=== PATIENT | female | born 1955 | race Caucasian/White ===

== ENCOUNTER 2024-01-10 17:18 | Emergency (ER) | payer MEDICARE, OTHER, SELFPAY ==
[2024-01-10 17:32] VITALS: BP 145/80; PULSE 75; RESP 18; TEMP 36.6; O2SAT 98; BMI 29.8
--- NOTE | 2024-01-10 17:36 | DI.RAD.S_ITS ---
PROCEDURE: XR FOREARM RT 2V INDICATIONS: fell/pain TECHNIQUE: 2 views of the forearm were acquired. COMPARISON: None. FINDINGS: Bones: Study limited due to patient positioning. There is a suspected minimally displaced right radial head fracture. Soft tissues: No suspicious soft tissue calcifications or masses. IMPRESSION: Suspected minimally displaced right radial head fracture. Dictated by: Mau Hernandez M.D. on 01/10/2024 at 18:33 Approved by: Mau Hernandez M.D. on 01/10/2024 at 18:34
--- NOTE | 2024-01-10 17:36 | DI.RAD.S_ITS ---
PROCEDURE: XR WRIST RT MIN 3V INDICATIONS: fell/pain TECHNIQUE: 4 views of the wrist were acquired. COMPARISON: None. FINDINGS: Bones: No definite fracture visualized. Normal alignment. Background polyarticular degenerative changes of the right wrist. Soft tissues: No suspicious soft tissue calcifications. There is moderate soft tissue swelling overlying the dorsal aspect of the right wrist. IMPRESSION: Moderate dorsal right wrist soft tissue swelling without definite underlying fracture. No evidence for dislocation. If there is persistent clinical concern for occult fracture given adequate mechanism of injury, consider repeat imaging in 10-14 days. Immobilization as clinically indicated. Dictated by: Mau Hernandez M.D. on 01/10/2024 at 18:34 Approved by: Mau Hernandez M.D. on 01/10/2024 at 18:36
--- NOTE | 2024-01-10 19:06 | ED.UPPEXIN ---
HPI - Extremity Injury (Upper) <Eliseo Juares PA-C - Last Filed: 01/10/24 19:11> General Chief Complaint: Extremity Injury, Upper Stated Complaint: Fall, wrist pain, not bld thinners Time Seen by Provider: 01/10/24 17:44 Source: patient Mode of arrival: Ambulatory History of Present Illness HPI narrative: 68-year-old female presents to the ED status post a mechanical fall and right arm injury sustained just prior to arrival. Patient states that she stepped on a wet patch of floor in the grocery store, causing her to slip and fall on her right forearm. Patient denies numbness, tingling, weakness. Patient endorses mild pain and swelling. Patient is not on blood thinners. No head strike or loss of consciousness. Related Data Allergies Allergy/AdvReac Type Severity Reaction Status Date / Time No Known Drug Allergies Allergy Verified 01/10/24 17:32 Review of Systems <Eliseo Juares PA-C - Last Filed: 01/10/24 19:11> Constitutional Constitutional: Denies chills, Denies fatigue, Denies fever(s), Denies frequent falls, Denies lethargy and Denies weakness Eyes Eyes: Denies change in vision, Denies eye discharge, Denies irritation and Denies loss of vision ENT Ears, Nose, Mouth, and Throat: Denies change in voice, Denies dizziness, Denies neck pain, Denies sore throat and Denies throat swelling Cardiovascular Cardiovascular: Denies chest pain, Denies irregular heart rhythm, Denies lightheadedness, Denies palpitations, Denies dyspnea, Denies dyspnea on exertion and Denies orthopnea Respiratory Respiratory: Denies cough, Denies dyspnea, Denies dyspnea on exertion and Denies wheezing Gastrointestinal Gastrointestinal: Denies abdominal pain, Denies change in bowel habits, Denies diarrhea, Denies nausea and Denies vomiting Musculoskeletal Musculoskeletal: Denies neck pain and Denies numbness Comments: Right elbow injury Integumentary/Breasts Skin/Breast: Denies pruritus, Denies erythema, Denies rash and Denies wounds Neurologic Neurologic: Denies behavioral changes, Denies confusion, Denies dizziness, Denies frequent falls, Denies loss of vision, Denies numbness and Denies weakness Psychiatric Psychiatric: Denies anxiety, Denies behavioral changes, Denies confusion, Denies depression, Denies homicidal ideation and Denies suicidal ideation Endocrine Endocrine: Denies fatigue, Denies flushing and Denies palpitations Hematologic/Lymphatic Hematologic/Lymphatic: Denies easy bruising Allergic/Immunologic Allergic/Immunologic: Denies urticaria, Denies throat swelling and Denies wheezing Patient History <Eliseo Juares PA-C - Last Filed: 01/10/24 19:11> Social History Smoking Status: Never smoker Smoking Status: Never smoker alcohol intake frequency: holidays/special occasions only Substance Use Type: does not use Exam <Eliseo Juares PA-C - Last Filed: 01/10/24 19:11> Narrative Exam Narrative: Const General:?cooperative, healthy appearing and comfortable HENMA Head:?normal to inspection Ears:?hearing grossly normal bilaterally Nose:?external nose normal Face and sinus:?normal facial exam and sinuses nontender Mouth:?oral mucosae normal Throat:?posterior oropharynx normal Eyes General:?appearance normal, both eyes and all related structures Neck Neck:?normal visual inspection and no lymphadenopathy noted Resp Effort & Inspection:?normal respiratory effort Auscultation:?clear to auscultation bilaterally Cardio Rate:?regular rate Rhythm:?regular rhythm Musculoskeletal There is some swelling to the right elbow and tenderness to pain. Strength and sensation is intact. Full range of motion. Neurovascularly intact. Neuro General:?patient alert, patient awake and patient oriented x3 Initial Vital Signs Initial Vital Signs: Vital Signs Temperature 97.9 F 01/10/24 17:32 Pulse Rate 75 01/10/24 17:32 Respiratory Rate 18 01/10/24 17:32 Blood Pressure 145/80 H 01/10/24 17:32 Pulse Oximetry 98 01/10/24 17:32 Oxygen Delivery Method Room Air 01/10/24 17:32 <Dell Carrillo MD - Last Filed: 01/16/24 14:11> Initial Vital Signs Initial Vital Signs: Vital Signs Temperature 97.9 F 01/10/24 17:32 Pulse Rate 75 01/10/24 17:32 Respiratory Rate 18 01/10/24 17:32 Blood Pressure 145/80 H 01/10/24 17:32 Pulse Oximetry 98 01/10/24 17:32 Oxygen Delivery Method Room Air 01/10/24 17:32 Course <Eliseo Juares PA-C - Last Filed: 01/10/24 19:11> Orders Ordered: Discontinued Medications Ibuprofen (Ibuprofen 400 Mg Tablet) 800 mg PO NOW ONE Stop: 01/10/24 19:00 Last Admin: 01/10/24 19:23 Dose: Not Given Documented By: MANUELA Vital Signs Vital signs: Vital Signs - 8 hr 01/10/24 17:32 Temperature 97.9 F Pulse Rate 75 Respiratory Rate 18 Blood Pressure 145/80 H Pulse Oximetry 98 Oxygen Delivery Method Room Air <Dell Carrillo MD - Last Filed: 01/16/24 14:11> Orders Ordered: Discontinued Medications Ibuprofen (Ibuprofen 400 Mg Tablet) 800 mg PO NOW ONE Stop: 01/10/24 19:00 Last Admin: 01/10/24 19:23 Dose: Not Given Documented By: MANUELA Vital Signs Vital signs: Vital Signs - 8 hr 01/10/24 17:32 Temperature 97.9 F Pulse Rate 75 Respiratory Rate 18 Blood Pressure 145/80 H Pulse Oximetry 98 Oxygen Delivery Method Room Air MDM - Extremity Injury (Upper) <Eliseo Juares PA-C - Last Filed: 01/10/24 19:11> MDM Narrative Medical decision making narrative: 68-year-old female presents to the ED status post a mechanical fall and right arm injury sustained just prior to arrival. X-ray was obtained which shows a minimally displaced right radial head fracture. Patient is fitted in a splint and provided a sling. Patient agrees to follow-up with her ortho specialist in [place]. Patient is from [place] and returning there soon. Patient given ibuprofen. Recommend continuing ibuprofen. ED return precautions were discussed with patient. Patient verbalized understanding. Medical records reviewed: Yes Discharge Plan Departure Patient Disposition: Home Clinical Impression: Closed fracture of radial head Qualifiers: Encounter type: initial encounter Fracture alignment: displaced Laterality: right Qualified Code(s): S52.121A - Displaced fracture of head of right radius, initial encounter for closed fracture Instructions: DI for Elbow Fracture Activity Restrictions/Additional Instructions: You were evaluated in the ED today for a right arm injury. Your x-ray shows a suspected minimally displaced right radial head fracture. You are being fitted in a splint and sling. Please follow-up with your customs compliance specialist in [place] as soon as possible. Return to the ED if you have worsening symptoms or the splint feels too tight. You may take ibuprofen for pain and swelling. Referrals: Miscellaneous,Doctor, [Primary Care Provider] - Stand Alone Forms: Patient Portal/API ED Sign-out <Dell Carrillo MD - Last Filed: 01/16/24 14:11> Cosign ED Attending Cosignature Attestation: I was immediately available in the department for consultation. ?This documentation has been reviewed and I agree with assessment and plan. Supervised by Dell Carrillo MD
== END 2024-01-10 19:23 | disposition home or self-care (01) ==
PROVIDERS: Emergency Provider Student in an Organized Health Care Education/Training Program
DX: S52.121A Displaced fracture of head of right radius, initial encounter for closed fracture (principal); W01.0XXA Fall on same level from slipping, tripping and stumbling without subsequent striking against object, initial encounter; Y92.512 Supermarket, store or market as the place of occurrence of the external cause
CPT/HCPCS: 29105; 73090; 73110; 99281; 99283